=== PATIENT | female | born 1950 | race Caucasian/White ===

== ENCOUNTER 2017-03-13 16:09 | Inpatient (IN) | payer OTHER ==
[~2017-03-13] VITALS: Ht 165.1 cm; Wt 55.3 kg
[2017-03-13 16:33] LABS: ABSOLUTE BASOPHIL COUNT 0 /CUMM (0.0-0.2); ABSOLUTE EOSINOPHIL COUNT 0 /CUMM (0.0-0.7); ABSOLUTE LYMPH COUNT 0.4 /CUMM (1.2-3.4); ABSOLUTE MONOCYTE COUNT 0.3 /CUMM (0.10-0.60); BASOPHIL % 0.1 % (0.0-2.0); EOSINOPHIL % 0.1 % (0-5); HEMATOCRIT 44.4 % (37-47); MEAN CORPUSCULAR HGB 33.5 PG (27.0-31.0); MEAN CORPUSCULAR HGB CONC 33.3 G/DL (33.0-37.0); MEAN CORPUSCULAR VOLUME 100.6 FL (81.0-99.0); MEAN PLATELET VOLUME 7.9 FL (7.4-10.4); PLATELET COUNT 172 /CUMM (130-400); RBC DISTRIBUTION WIDTH 13.9 % (11.5-14.5); RED BLOOD CELL CT 4.42 /CUMM (4.20-5.40); WHITE BLOOD CELL COUNT 8.8 /CUMM (4.8-10.8)
--- NOTE | 2017-03-13 16:34 | ED INFLUENZA/URI COMPLAINT ---
History of Present Illness General Chief Complaint: Chest Pain Stated Complaint: SIB BY WALK IN R/O PNEUMONIA, CP, SOB Source: patient, family Exam Limitations: no limitations Vital Signs & Intake/Output Vital Signs & Intake/Output Vital Signs Date Time Temp Pulse Resp B/P B/P Pulse O2 O2 Flow FiO2 Mean Ox Delivery Rate 03/13 1856 98.9 117 20 126/63 95 Nasal 2.0L Cannula 03/13 1731 119 20 138/75 87 Room Air 03/13 1649 94 Nasal 2.0L Cannula 03/13 1620 98.8 114 26 124/76 86 Room Air Allergies Coded Allergies: Penicillins (HIVES 08/08/16) Reconcile Medications Alprazolam 2 MG TABLET 1 TAB PO BID PRN ANXIETY (Reported) Biotin (Unknown Strength) TABLET (Unknown Dose) PO DAILY SUPPLEMENT (Reported ) Cyclosporine (Restasis) 0.05 % DROPERETTE 1 GTT OPH BID BOTH EYES (Reported) Duloxetine HCl 60 MG CAPSULE.DR 120 MG PO DAILY DEPRESSION (Reported) Ipratropium [place] 42 MCG (0.06 %) SPRAY 1 SPRAY NASB 4XDAILY SJORGRENS SYNDROME (Reported) Lactobacillus Acidophilus (Probiotic) (Unknown Strength) CAPSULE (Unknown Dose ) PO DAILY PROBIOTICS (Reported) Osage-3 Fatty Acids (Osage-3) (Unknown Strength) CAPSULE (Unknown Dose) PO DAILY SUPPLEMENT (Reported) Triage Note: 67 YO FEMALE TO TRIAGE FROM WALK IN. PT C/O R SIDED RIB PAIN AND SHORTNESS OF BREATH. PT TACHYPNIC AT THIS TIME RATE 24-26. RA SATS 86%. PT PALE IN COLOR. DENIES CHEST PAIN. [facility] TO [facility] FOR [facility] AT THIS TIME. PLACED ON 2L OXYGEN VIA NASAL CANNULA. 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 PT ALSO C/O WEAKNESS AND FEVER AT HOME. AFEBRIL AT THIS TIME 98.8 Triage Nurses Notes Reviewed? yes HPI: Ms. Tapia is a 67 yo f w/ anxiety and depression presenting to ED for SOB. Patient states that her had a cold last week and she took care of him. On Monday she began having URI symptoms and a sore throat. Patient had a cough as well as some mild shortness of breath. Over the weekend and shortness of breath seemed to worsen. Patient has stairs in her home which she can typically run up and down. She also exercises 3-4 times a week. She is no longer able to go up or down the flight of stairs without positive for rest. Patient endorses diffuse fatigue. Also endorses diffuse chills as well as subjective fevers and sweats. No significant sputum production, by small amount of clear/white sputum comes up occasionally. No blood in the sputum. Patient states her immunizations such as her Pneumovax is up-to-date. Remote history of smoking quit over 20 years ago. Patient was a 2 pack a day smoker for approximately 10- 15 years prior to that. states that the patient appears paler than usual. The patient endorses tachypnea as well as shortness of breath with speaking. Right sided lower rib pain with cough or deep inspiration. (CEDRIC FINK MD) Past History Travel History Traveled to [place] past 21 day No Medical History Any Pertinent Medical History? 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 No (CEDRIC FINK MD) Review of Systems Review of Systems Constitutional: Reports: chills, fever, malaise. EENTM: Reports: throat pain. Respiratory: Reports: cough, short of breath. Denies: wheezing. Cardiovascular: Reports: chest pain. Denies: peripheral edema, syncope. GI: Reports: no symptoms. Genitourinary: Reports: no symptoms. Musculoskeletal: Reports: no symptoms. Skin: Reports: see HPI. Neurological/Psychological: Reports: no symptoms. Hematologic/Endocrine: Reports: no symptoms. Immunologic/Allergic: Reports: no symptoms. All Other Systems: Reviewed and Negative (CEDRIC FINK MD) Physical Exam Physical Exam General Appearance: well developed/nourished, alert, awake, mild distress Head: atraumatic, normal appearance Eyes: Bilateral: normal appearance, PERRL, EOMI. Ears, Nose, Throat: normal ENT inspection, moist mucous membrane, hearing grossly normal Neck: normal inspection, supple, full range of motion, trachea midline Respiratory: chest non-tender, respiratory distress, Tachypneic to 26. 5-6 word sentences. Crackles and rhonchi in RLL and RML Cardiovascular: tachycardia Gastrointestinal: normal bowel sounds, soft, non-tender Back: normal inspection, normal range of motion Extremities: normal inspection, normal capillary refill, normal range of motion Neurologic/Psych: no motor/sensory deficits, awake, alert, oriented x 3, normal gait, normal mood/affect Skin: intact Core Measures Severe Sepsis Present: No BC x2: Yes Lactic Acid x2: Yes IV ABX Broad Spectrum: No NS/LR Started: Yes Septic Shock Present: No (ALEKS BEARD,CEDRIC) Progress Differential Diagnosis: influenza, pneumonia, pharyngitis, sinusitis Plan of Care: Orders Procedure Date/time Status LACTIC ACID 03/13 1948 Active Patient Data 03/13 1932 Active Admit to inpatient 03/13 1911 Active BLOOD CULTURE 03/13 164 Active LACTIC ACID 03/13 1648 Complete TROPONIN LEVEL 03/13 162 Complete COMPREHENSIVE METABOLIC PANEL 03/13 162 Complete CBC WITHOUT DIFFERENTIAL 03/13 162 Complete EKG 03/13 161 Active Current Medications Sig/Mirella Start time Last Medication Dose Stop Time Status Admin Ceftriaxone Sodium 1,000 MG DAILY 03/13 1904 AC 03/13 (Rocephin) 191 Laboratory Tests 03/13/17 193: Lactic Acid Pending 03/13/17 172: Lactic Acid 2.2 H 03/13/17 1630: Anion Gap 10, Estimated GFR > 60, BUN/Creatinine Ratio 11.4, Glucose 99, Calcium 9.2, Total Bilirubin 1.0, AST 20, ALT 35, Alkaline Phosphatase 63, Troponin I < 0.01, Total Protein 5.5 L, Albumin 3.7, Globulin 1.8 L, Albumin/Globulin Ratio 2.1, CBC w Diff NO MAN DIFF REQ, RBC 4.42, MCV 100.6 H, MCH 33.5 H, RDW 13.9, MPV 7.9, Gran % 91.6 H, Lymphocytes % 5.0 L, Monocytes % 3.2, Eosinophils % 0.1, Basophils % 0.1, Absolute Granulocytes 8.0 H, Absolute Lymphocytes 0.4 L, Absolute Monocytes 0.3, Absolute Eosinophils 0, Absolute Basophils 0, PUBS MCHC 33.3 Microbiology 03/13 1723 BLOOD: Blood Culture - RECD 03/13 165 BLOOD: Blood Culture - RECD 67 yo f w/ hx of pneumonia and remote smoker presenting w/ SOB and cough after taking care of her w/ URI. Patient is hypoxic with increased work of breathing and tachypnea. Given her constellation of symptoms and subjective fever and chills, this is likely a pneumonia. Basic labs including lactic acidosis obtained. 2 sets of blood cultures were also obtained given the level of hypoxia. Chest x-ray ordered. Clinically, the patient has a right lower lobe pneumonia based on crackles and rhonchi. Given the tachycardia, patient was ordered for 1 L of IV fluids. Patient has RLL pneumonia developing on CXR. Pt ordered for ceftriaxone/ azithromycin. Given the degree of hypoxia and the patient did not obtain a history of oxygen requirement, we'll admit to the hospital as an inpatient or IV antibiotics as well as oxygen. Patient will also likely need PT prior to discharge. Will order Tylenol and Motrin for her developing headache while eyes likely low-grade fever. Discussed with Dr. Root. (CEDRIC FINK MD) Diagnostic Imaging: Viewed by Me: Radiology Read. Discussed w/RAD: Radiology Read. CXR Impression: Right lower lobe consolidation concerning for developing pneumonia. Follow-up chest x-rays recommended following treatment to document resolution. Initial ED EKG: normal axis, normal intervals, normal p-waves, normal sinus rhythm, nonspecific ST T wave chg, Twave inversions in V3-V6, tachycardia Prior EKG: changed (CEDRIC FINK MD) Departure Departure Time of Disposition: 1916 Disposition: HOME OR SELF CARE Condition: Stable Clinical Impression Primary Impression: Right lower lobe pneumonia Qualifiers: Pneumonia type: due to unspecified organism Qualified Code: J18.1 - Lobar pneumonia, unspecified organism Secondary Impressions: Hypoxia, Tachycardia Referrals: MUMTAZ CORLEY MD (PCP/Family) Departure Forms: Customer Survey General Discharge Information Admission Note Spoke With: KARYN ROOT MD Documentation of Exam: Documentation of any treatments & extenuating circumstances including Concerns Regarding Discharge (functional status, medication knowledge or non-compliance, living conditions, etc.) that warrant an admission rather than observation: Patient requires inpatient hospitalization for IV antibiotics as well as her degree of hypoxia. Should the patient go home, her pneumonia could worsen leading to sepsis or septic shock which would increase her morbidity and mortality significantly. Also patient is significantly hypoxic with ambulation to 79% on room air. This could lead to even worsening hypoxia and even . (ALEKS BEARD,CEDRIC) PA/ELECTRONICS SCALE TESTER Co-Sign Statement Statement: ED Attending supervision documentation- [] I saw and evaluated the patient. I have also reviewed all the pertinent lab results and diagnostic results. I agree with the findings and the plan of care as documented in the PA's/ELECTRONICS SCALE TESTER's documentation. [X] I have reviewed the ED Record and agree with the PA's/ELECTRONICS SCALE TESTER's documentation. [] Additions or exceptions (if any) to the PAs/ELECTRONICS SCALE TESTER's note and plan are summarized below: [] (CINTHYA SMYTH DO)
[2017-03-13 16:36] LABS: GRANULOCYTE % 91.6 % (42.2-75.2)
[2017-03-13] MEDS ORDERED: DULOXETINE HCL60 MG PO (17:18)
[2017-03-13] MEDS ORDERED: ALPRAZOLAM2 M2 PO (17:18)
[2017-03-13] MEDS ORDERED: RESTASIS1 EACH OPH (17:19)
[2017-03-13] MEDS ORDERED: IPRATROPIUM BRO15 M1 NASB (17:19)
[2017-03-13] MEDS ORDERED: BIOTIN800 MCG PO (17:20)
[2017-03-13] MEDS ORDERED: OMEGA-31000 M1 PO (17:20)
[2017-03-13] MEDS ORDERED: PROBIOTIC1 EACH PO (17:20)
--- NOTE | 2017-03-13 18:48 | RADIOLOGY REPORT ---
EXAMINATION: XR CHEST CLINICAL INFORMATION: Shortness of breath, cough, and hypoxia COMPARISON: Chest radiograph 01/10/2008 TECHNIQUE: 2 views of the chest were obtained. FINDINGS: There is focal consolidation within the right lower lobe that is concerning for developing pneumonia. The lungs are otherwise clear. There is no pneumothorax. Cardiac silhouette size is normal. There are no acute osseous findings. Thoracic spondylosis. IMPRESSION: Right lower lobe consolidation concerning for developing pneumonia. Follow-up chest x-rays recommended following treatment to document resolution.
--- NOTE | 2017-03-13 19:46 | History & Physical ---
GERALD VIDES MD 03/13/171945: General Information and HPI MD Statement: I have seen and personally examined JEN THOMPSON and documented this H&P. The patient is a 67 year old F who presented with a patient stated chief complaint of [shortness of breath, cough,fever,chills]. Source of Information: patient Exam Limitations: no limitations History of Present Illness: 67-year-old female with PMH anxiety, depression, Sjogren? (dry eyes, mouth,nose, negative serology), was sent in by [id number] for evaluation of shortness of breath, cough, fever, and chills, to evaluate for pneumonia. Patient has been taking care of her with URI bronchitis with bilateral earache over the past week. She has been in her normal state of health up until monday when she started to feel sore throat. Her symptoms worsen over the past few days. Has nonproductive cough. Pleuritic right sided chest pain, 6/10, worsen with cough. She had fever up to 101.7, especially in the evening. She has gotten significantly short of breath that she was not able to go up the stairs. She also was feeling "mentally silly", when she thought there was twin beds in her bedroom, when in fact she never has twin beds. At baseline, she exercises 4/7 days a week. She has 2 flights of stairs at home. She exercises by going up and down the stairs. Over the past year, she has noticed that she has gotten more short of breath that requires her to rest. No chest pain, diaphoresis, arm/jaw pain, nausea. She reports dysphagia due to dry mouth. Denies aspirating on food. In the ED, she desat to 86% on RA at rest, 79% on RA on ambulation, 95% on 2L. Given 1Xceftriaxone,azithro,tylenol po, motrin, 1X NS bolus. BC obtained. Allergies/Medications Allergies: Coded Allergies: egg (Intermediate, NAUSEA, VOMITING, DIARRHEA 03/13/17) Penicillins (HIVES 08/08/16) Home Med list Alprazolam 2 MG TABLET 1 TAB PO BID PRN ANXIETY (Reported) Biotin 800 MCG TABLET 2 CAP PO DAILY SUPPLEMENT (Reported) Cyclosporine (Restasis) 0.05 % DROPERETTE 1 GTT OPH BID BOTH EYES (Reported) Duloxetine HCl 60 MG CAPSULE.DR 120 MG PO DAILY DEPRESSION (Reported) Ipratropium [place] 42 MCG (0.06 %) SPRAY 1 SPRAY NASB 4XDAILY SJORGRENS SYNDROME (Reported) Lactobacillus Acidophilus (Probiotic) 10 BILLION CELL CAPSULE 2 CAP PO DAILY PROBIOTICS (Reported) [place]-3 Fatty Acids ([place]-3) 1,000 MG CAPSULE 1 CAP PO BID SUPPLEMENT ( Reported) Past History Travel History Traveled to [place] past 21 day No Medical History Neurological: NONE EENT: NONE Cardiovascular: NONE Respiratory: pneumonia Gastrointestinal: NONE Hepatic: NONE Renal: NONE Musculoskeletal: NONE Psychiatric: anxiety, depression Endocrine: NONE Blood Disorders: NONE Cancer(s): NONE 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 Surgical History Surgical History: tonsilectomy Past Family/Social History Family History Relations & Conditions if any grandfather FH: myocardial infarction FATHER FH: myocardial infarction Relation not specified for: FH: depression Psychosocial History Where do you live? Home Who Do You Live With? spouse Smoking Status: Former Smoker ([id number] years,quit 20yrsago) ETOH Use: occasional use Illicit Drug Use: denies illicit drug use Functional Ability ADLs Independent: dressing, eating, toileting, bathing. Ambulation: independent IADLs Independent: shopping, housework, finances, food prep, telephone, transportation , medication admin. Review of Systems Review of Systems Constitutional: Reports: chills, fever, weakness. EENTM: Denies: visual changes. Cardiovascular: Reports: chest pain. Denies: edema, palpitations, syncope. Respiratory: Reports: cough, short of breath. Denies: hemoptysis, sputum production, wheezing. GI: Denies: abdominal pain, bloating, constipation, diarrhea, nausea, vomiting. Genitourinary: Denies: dysuria. Exam & Diagnostic Data Last 24 Hrs of Vital Signs/I&O Vital Signs Date Time Temp Pulse Resp B/P B/P Pulse O2 O2 Flow FiO2 Mean Ox Delivery Rate 03/13 2303 98.1 97 16 98/58 97 Nasal 2.5L Cannula 03/13 2231 98.4 101 20 94/53 98 Nasal 2.0L Cannula 03/13 2042 100.0 667 48 0084/65 98 Nasal 2.0L Cannula 03/13 1856 98.9 117 20 126/63 95 Nasal 2.0L Cannula 03/13 1731 119 20 138/75 87 Room Air 03/13 1649 94 Nasal 2.0L Cannula 03/13 1620 98.8 114 26 124/76 86 Room Air Physical Exam General Appearance Alert, Oriented X3, Cooperative, No Acute Distress, sitting up comfortably on the bed eating dinner Skin No Significant Lesion Skin Temp/Moisture Exam: Warm/Dry Sepsis Skin Exam (color): Normal for Ethnicity HEENT Atraumatic, PERRLA, EOMI, dry mucous membranes Neck Supple, No JVD, +2 Carotid Pulse wo Bruit Lymphatic Axillary nl, Cervical nl Cardiovascular Normal S1, Normal S2, No Murmurs, Gallops, Rubs, tachycardic Lungs Clear to Auscultation, Normal Air Movement Abdomen Normal Bowel Sounds, Soft, No Tenderness, No Hepatospenomegaly, No Masses Neurological Normal Speech, Strength at 5/5 X4 Ext Extremities No Edema, Normal Pulses Vascular Normal Pulses, Pulses Symmetrical, normal capillary refill Last 24 Hrs of Labs/Clarence: Laboratory Tests 03/13/172201: Troponin I < 0.01, Vitamin B12 Pending, Folate Pending 03/13/17 2201: Vitamin B12 Cancelled 03/13/17 220: RBC Folate Cancelled 03/13/17 1935: Lactic Acid 2.6 H 03/13/17 1723: Lactic Acid 2.2 H 03/13/17 1630: Anion Gap 10, Estimated GFR > 60, BUN/Creatinine Ratio 11.4, Glucose 99, Calcium 9.2, Total Bilirubin 1.0, AST 20, ALT 35, Alkaline Phosphatase 63, Troponin I < 0.01, Total Protein 5.5 L, Albumin 3.7, Globulin 1.8 L, Albumin/Globulin Ratio 2.1, TSH 0.335, Thyroxine (T4) 4.7, CBC w Diff NO MAN DIFF REQ, RBC 4.42, MCV 100.6 H, MCH 33.5 H, RDW 13.9, MPV 7.9, Gran % 91.6 H, Lymphocytes % 5.0 L, Monocytes % 3.2, Eosinophils % 0.1, Basophils % 0.1, Absolute Granulocytes 8.0 H, Absolute Lymphocytes 0.4 L, Absolute Monocytes 0.3, Absolute Eosinophils 0, Absolute Basophils 0, PUBS MCHC 33.3 Microbiology 03/13 2215 NASOPHARYN: Influenza Virus A & B Rapid Smear - COMP 03/13 2011 URINE ROUT: Legionella Antigen - ORD 03/13 2011 URINE ROUT: Streptococcus pneumoniae Antigen (M - ORD 03/13 2011 LOWER RESP: Respiratory Culture - ORD 03/13 2011 LOWER RESP: Gram Stain - ORD 03/13 1723 BLOOD: Blood Culture - RECD 03/13 1650 BLOOD: Blood Culture - RECD Diagnostic Data EKG Results SR [address] depression V4,v5,v6 (old) T inversion II, III, AvF, V4,v5,v6 (new) CXR Results EXAM TYPE: RAD - XRY-CHEST XRAY, PA AND LATERAL EXAMINATION: XR CHEST CLINICAL INFORMATION: Shortness of breath, cough, and hypoxia COMPARISON: Chest radiograph 01/10/2008 TECHNIQUE: 2 views of the chest were obtained. FINDINGS: There is focal consolidation within the right lower lobe that is concerning for developing pneumonia. The lungs are otherwise clear. There is no pneumothorax. Cardiac silhouette size is normal. There are no acute osseous findings. Thoracic spondylosis. IMPRESSION: Right lower lobe consolidation concerning for developing pneumonia. Follow-up chest x-rays recommended following treatment to document resolution. DICTATED BY: CINTHYA PRAKASH MD DATE/TIME DICTATED:03/13/171841 [employer] ADJUSTER:JAMAR Assessment/Plan Assessment: 67-year-old female with PMH anxiety, depression, Sjogren? (dry eyes, mouth,nose, negative serology), was sent in by [id number] for evaluation of sore throat, shortness of breath, pleuritic chest pain, cough, fever up to 101.7, and chills, with positive sick contact ( with URI). She reports dysphagia due to dry mouth. Denies aspirating on food. Over the past year, she has noticed that she has gotten more short of breath that requires her to rest when she walks up and down the stairs. No chest pain, diaphoresis, arm/jaw pain, nausea. CXR showed right lower lobe pneumonia. EKG showed new T wave inversions II, III, AvF, V4,V5 ,V6 and old ST depression V4,V5,V6. Initial troponin negative. Lactic acid was up to 2.6. Patient admitted to telemetry for EKG changes and acute hypoxic respiratory failure (86% on RA, 79% ambulating on RA) for likely community acquired pneumonia vs possible aspiration pneumonia. Problem list: # Acute hypoxic respiratory failure (86% on RA, 79% ambulating on RA) for likely community acquired pneumonia vs possible aspiration pneumonia # EKG changes, rule out ACS # Acute hypoxic respiratory failure (86% on RA, 79% ambulating on RA) for likely community acquired pneumonia vs possible aspiration pneumonia * F/U BCX2, LRC, urine legionella, urine strep pneumo, flu * Continue ceftriaxone and azithromycin * Swallow eval in am * Regular diet ordered * NS 75ml/hr X 3 bags # EKG changes, rule out ACS * Admit to telemetry * Serial EKG and trops 10pm, 6am * Cardio consult in am * Given aspirin X 1 * F/U echocardiogram * F/U lipid panel # Continue home meds Duloxetine 120 mg daily Xanax 2 mg PO BID Fish oil Lactobacillus Diet: regular diet DVT ppx: heparin sc and alps PP: morphine 1 mg IV Q4P severe, vicodin 5/325 1 tab Q6P moderate, tylenol po Q6P DNR/DNI As Ranked By This Provider Problem List: 1. Right lower lobe pneumonia Qualifiers Pneumonia type: due to unspecified organism Qualified Code: J18.1 - Lobar pneumonia, unspecified organism 2. Hypoxia 3. Tachycardia 4. Acute electrocardiogram changes Core Measures/Miscellaneous Acute Coronary Syndrome ACS Diagnosis: No Cerebrovascular Accident CVA/TIA Diagnosis: No Congestive Heart Failure CHF Diagnosis: No Venous Thromboembolism VTE Risk Factors: Acute medical illness, Age > 40 No [facility] VTE prophylaxis d/t: No contraindications No VTE Pharm Prophylaxis d/t: No contraindications VTE Diagnosis: No VTE Type: NONE VTE Confirmed by (Test): NONE Severe Sepsis Severe Sepsis Present: No BC x2: Yes Lactic Acid x2: Yes IV ABX Broad Spectrum: No NS/LR Started: Yes Septic Shock Septic Shock Present: No Miscellaneous Documentation Attending Case [facility]ed [facility] Primary Care Physician: MUMTAZ CORLEY MD Patient sees these Specialists Opthalmology Dr Luis A Ramirez Psyciatrist [facility] Level of Patient Care: Telemetry TOMMY BENITEZ 03/13/171947: Resident Review Statement Resident Statement: examined this patient, discussed with pharmacy graduate intern, agreed with pharmacy graduate intern, discussed with family, reviewed EMR data (avail), discussed with nursing , discussed with case mgmt, reviewed images, amended to note Other Findings: 67-year-old female with a past medical history of Sjogren's syndrome, depression , anxiety presented to the ER with chief complaint of right-sided rib pain and shortness of breath and hypoxic with O2 sats of 86%. According to the patient was in her usual state of health up until Monday when she started to have sore throat as well as shortness of breath which progressively worsened to the point where it was difficult for her to ambulate this morning associated decided to come to the ER. Apparently there is a history of sick contact she was taking care of her who had bronchitis. Denies CP, palpitations, does endorse SOB, pleuritic chest pain on the right side. Denies lower extermity edema, PND, orthopnea. Does endorse ALCALA within 1 year where she gets winded when she climbs 2 flights of stairs. Of note does exercise 4/7 days a week. For rest of history pelase refer to Dr. Vides's not above. Vitals at the time of admission blood pressure 126/63, respiratory rate of 20, tachycardic to 117, afebrile saturating 95% on 2 L of oxygen via nasal cannula. On physical exam alert and oriented 3 and in no acute distress lying comfortably in bed. HEENT revealed PERRLA, dry mucous membranes. Examination of the neck did not reveal an elevated JVP, cervical lymphadenopathy. Cardiovascular exam pertinent for normal S1, S2, no murmurs rubs or gallops appreciated. Chest was clear to auscultation bilaterally. Abdominal exam is benign with abdomen soft, nontender, nondistended with normal bowel sounds in all 4 quadrants. Examination of the lower extremities did not reveal any edema. Pulses were intact bilaterally. Neuro exam was grossly unremarkable. Labs were pertinent for a normal white blood cell count of 8800, and H&H of 14.8 /44.4 and elevated MCV of 100.6 with normal platelet count 1 72,000. Serum chemistries pertinent for hyponatremia with a sodium of 133, potassium of 3.7, bicarbonate of 24, normal anion gap of 10, BUN 8 with a creatinine of 0.7. Lactic acid elevated to 2.2. LFTs unremarkable AST/alt of 20/35, total bili 1.0 , first set of troponins negative at less than 0.0 100 Chest x-ray showed right lower lobe consolidation concerning for developing pneumonia. EKG revealed sinus tachycardia with a heart rate of 117, normal axis, minimal ST segment depression in inferior leads 23 and aVF as well as V4 to V6 with T-wave inversions in V4 to V6 errant nail from the previous EKG. In the ER she received 1 dose of IV ceftriaxone thousand milligrams, Zithromax 500 mg 1, Tylenol 650 mg by mouth, Motrin 600 mg by mouth 1 and normal saline 1000ML 1. Assessment and plan Admit patient to telemetry given subtle EKG changes #Acute hypoxemic respiratory failure Most likely secondary to community-acquired pneumonia given radiological evidence of consolidation however cannot rule out aspiration given history of Sjogren's syndrome and questionable dysphagia. For now continue on ceftriaxone thousand milligrams daily, azithromycin 500 mg daily Follow-up will respiratory cultures, urinary antigen for strep, Legionella, rapid flu Swallow eval in a.m. Continue to titrate oxygen to maintain saturations greater than 92%. #EKG chnages - R/O ACS - F/U trop and EKG @ 10:00pm and 6:00am - F/U Echo - Cardio conuslt in AM - F.U lipid panel #Depression and anxiety Continue on Xanax 2 mg twice a day when necessary by mouth, duloxetine 620 mg daily -DVT prophylaxis Heparin 5000 international units 3 times a day subcutaneous Diet Regular Code Status DNR/DNI DK BEARD, [facility] 03/13/172030: Attending MD Review Statement Attending Statement Attending MD Statement: examined this patient, discuss w/resident/PA/PATIENT CARE, agreed w/resident/PA/PATIENT CARE Attending Assessment/Plan: 67 yo F with h/o depression, clinical Sjogren's (although markers were negative) , is sent in from a Walk in [facility] for evaluation of right sided rib/lower chest pleuritic pain and dyspnea. Patient reports her was suffering an URI last week, after which she developed sore throat 3 days ago, associated with fatigue, exhaustion, dyspnea and nonproductive cough. Fever of ?107 at home. She is uptodate with flu and pneumonia vaccine. Of note, patient does not have any cardiac problems. She does report exertional dyspnea for the past 1 year, at baseline she is pretty active and works out 3-4 times per week. Patient reports having a clinical diagnosis of Sjogren's although all her serologic markers were negative. She reports having difficulty swallowing food, as she tends to choke and has to facililitate swallowing with water. She denies odynophagia or aspiration. On ER arrival, O2 sats were 86% on RA, on ambulation sats dropped to 79% --> 97% on 2.5L. Tmax 100, tachycardic to 100-110's, BP 126/63 --> 98/58. Exam: AAO, dry mucous membranes, Chest right sided basilar rales. Labs: WBC 8.8, macrocytosis, trop neg, lactic acid 2.2 --> 2.6. CXR: right lower lobe consolidation concerning for a developing pneumonia. EKG: Sinus tachycardia, Qtc 402, minimal ST depression, TWI V3-6, II, III, aVF (compared to EKG 2007). 1. Acute hypoxic respiratory failure, right lower lobe pneumonia likely community acquired, however aspiration cannot be ruled out. TRC nebs, panculture , check urine legionella and strep Ag, IV ceftriaxone and azithro, obtain swallow eval in AM. IV hydration, trend lactic acid. 2. Prolonged exertional dyspnea and new EKG changes, no underlying cardiac history. Tele admit, serial EKG and troponin, Echo to assess LV function, give aspirin, check lipid panel, TSH, A1c. Obtain cardio consult. She may eventually need outpatient stress test. She has family h/o atherosclerosis. DVT ppx Lovenox. DNR/I.
--- NOTE | 2017-03-13 20:33 | Admission Certification ---
Admission Certification Certification Statement - As attending physician, I certify that at the time of - admission, based on clinical presentation, severity of - symptoms, need for further diagnostic testing and - therapeutic interventions, and risk of adverse outcomes - without in-hospital treatment, in my clinical assessment, - this patient requires an acute hospital stay for a minimum - of two nights or longer. I have also considered psychsocial - factors such as support system, advanced age, financial - issues, cognitive issues, and failed out-patient treatments, - past re-admission history, safety of patient, and lack of - compliance as applicable. Specific rationale supporting this admission is: Hypoxia, pneumonia likely community acquired, although aspiration cannot be ruled out. New EKG changes requires Telemetry monitoring and serial assessment to rule out cardiac event.
[2017-03-13 23:03] VITALS: BP 98/58
[2017-03-14 07:48] LABS: ABSOLUTE BASOPHIL COUNT 0 /CUMM (0.0-0.2); ABSOLUTE EOSINOPHIL COUNT 0.1 /CUMM (0.0-0.7); ABSOLUTE GRANULOCYTE CT 5.1 /CUMM (1.4-6.5); ABSOLUTE LYMPH COUNT 0.6 /CUMM (1.2-3.4); ABSOLUTE MONOCYTE COUNT 0.2 /CUMM (0.10-0.60); MEAN PLATELET VOLUME 8.6 FL (7.4-10.4); RBC DISTRIBUTION WIDTH 13.9 % (11.5-14.5)
[2017-03-14 08:00] VITALS: BP 90/56
[2017-03-14 08:08] LABS: BASOPHIL % 0.1 % (0.0-2.0); EOSINOPHIL % 1.5 % (0-5); GRANULOCYTE % 84.1 % (42.2-75.2); MEAN CORPUSCULAR HGB 33.5 PG (27.0-31.0); MEAN CORPUSCULAR HGB CONC 33.2 G/DL (33.0-37.0); MEAN CORPUSCULAR VOLUME 100.8 FL (81.0-99.0); PLATELET COUNT 132 /CUMM (130-400); WHITE BLOOD CELL COUNT 6.1 /CUMM (4.8-10.8)
[2017-03-14 08:15] LABS: HEMATOCRIT 38.3 % (37-47)
--- NOTE | 2017-03-14 08:54 | PN- Housestaff ---
DANIELA WOODRUFF 03/14/17 0840: Subjective Follow-up For: Acute hypoxemic respiratory failure, likely secondary to community acquired pneumonia EKG changes Subjective: Patient seen and examined. Reports no further episodes of cough and sputum production. No fevers or chills overnight. The rib pain as completely resolved. She reports feeling much better and states the urge to be discharged soon. Review of Systems Constitutional: Reports: see HPI. Objective Last 24 Hrs of Vital Signs/I&O Vital Signs Date Time Temp Pulse Resp B/P B/P Pulse O2 O2 Flow FiO2 Mean Ox Delivery Rate 03/14 0000 94 Nasal 2.0L Cannula 03/13 2303 98.1 97 16 98/58 97 Nasal 2.5L Cannula 03/13 2231 98.4 101 20 94/53 98 Nasal 2.0L Cannula 03/13 2042 100.0 327 35 0444/65 98 Nasal 2.0L Cannula 03/13 1856 98.9 117 20 126/63 95 Nasal 2.0L Cannula 03/13 1731 119 20 138/75 87 Room Air 03/13 1649 94 Nasal 2.0L Cannula 03/13 1620 98.8 114 26 124/76 86 Room Air Intake & Output 03/14 1600 03/14 0800 03/14 0000 Intake Total 1000 2000 Output Total 750 Balance 250 2000 Intake, IV 800 2000 Intake, Oral 200 Output, Urine 750 Patient 122 lb Weight Weight Reported by Patient Measurement Method Physical Exam General Appearance: Alert, Oriented X3, Cooperative HEENT: Atraumatic, PERRLA Cardiovascular: Regular Rate, Normal S1, Normal S2 Lungs: Clear to Auscultation, decreased air entry noted at right lung base. Extremities: No Clubbing, No Cyanosis, No Edema Current Medications: Current Medications Sig/Mirella Start time Last Medication Dose Route Stop Time Status Admin Acetaminophen 650 MG Q6P PRN 03/13 2115 AC PO Acetaminophen 650 MG ONCE ONE 03/13 1915 DC 03/13 PO 03/13 Acetaminophen 0 .STK-MED ONE 03/13 1915 DC PO Acetaminophen/ 1 TAB Q6P PRN 03/13 2115 AC Hydrocodone Bitart PO Alprazolam 2 MG BID PRN 03/13 2115 AC 03/14 PO 03/203 Aspirin 325 MG ONCE ONE 03/13 2130 DC 03/14 PO 06/05 2131 0012 Azithromycin 500 MG DAILY 03/14 1000 AC Sodium Chloride 250 ML IV Azithromycin 500 MG ONCE ONE 03/13 1915 DC 03/13 PO 03/13 Ceftriaxone Sodium 1,000 MG 1900 03/14 1900 AC IV Ceftriaxone Sodium 1,000 MG DAILY 03/14 1000 CAN IV Ceftriaxone Sodium 0 .STK-MED ONE 03/13 1915 DC .ROUTE Ceftriaxone Sodium 1,000 MG DAILY 03/13 1904 DC 03/13 IV 191 Cyclosporine 2 GTT BID 03/14 1000 AC OPH Duloxetine HCl 120 MG DAILY 03/14 1000 AC PO Fish Oil 1,050 MG DAILY 03/13 2115 AC 03/14 PO 0012 Heparin Sodium 5,000 UNIT Q8 03/13 2200 AC (Porcine) SC Ibuprofen 600 MG ONCE ONE 03/13 1915 DC 03/13 PO 03/13 Ibuprofen 0 .STK-MED ONE 03/13 1915 DC PO Ipratropium [place] 2.5 ML ONCE ONE 03/13 2115 DC INH 03/13 2116 Lactobacillus 1 CAP BID 03/13 2200 AC 03/14 Acidophilus PO 0011 Morphine Sulfate 1 MG Q4P PRN 03/13 2115 AC IV Potassium Chloride 40 MEQ ONCE ONE 03/14 0845 AC PO 03/14 0846 Sodium Chloride 1,000 ML BOLUS ONE 03/14 0015 CAN IV 03/14 0114 Sodium Chloride 1,000 ML Q13H 03/13 2115 AC 03/14 IV 03/15 0914 0010 Sodium Chloride 1,000 ML BOLUS ONE 03/13 2045 DC 03/13 IV 03/13 2144 2043 Sodium Chloride 1,000 ML BOLUS ONE 03/13 1700 DC 03/13 IV 03/13 1759 1715 Last 24 Hrs of Lab/Clarence Results Last 24 Hrs of Labs/Mics: Laboratory Tests 03/14/17 0653: Lactic Acid 1.4 03/14/17 0653: Anion Gap 9, Estimated GFR > 60, BUN/Creatinine Ratio 15.7, Hemoglobin A1c Pending, Troponin I < 0.01, Triglycerides 60, Cholesterol 139, LDL Cholesterol, Calc 60 L, HDL Cholesterol 67 H, Cholesterol/HDL Ratio 2, TSH 1.390, CBC w Diff MAN DIFF ORDERED, RBC 3.80 L, MCV 100.8 H, MCH 33.5 H, RDW 13.9, MPV 8.6 , Gran % 84.1 H, Lymphocytes % 10.2 L, Monocytes % 4.1, Eosinophils % 1.5, Basophils % 0.1, Absolute Granulocytes 5.1, Segmented Neutrophils 74, Band Neutrophils 17 H, Absolute Lymphocytes 0.6 L, Lymphocytes 6 L, Monocytes 2, Absolute Monocytes 0.2, Eosinophils 1, Absolute Eosinophils 0.1, Absolute Basophils 0, Platelet Estimate VERIFIED BY SMEAR, Anisocytosis 1+, PUBS MCHC 33.2 03/14/17 0035: Lactic Acid 2.2 H 03/13/17 2300: Lactic Acid Cancelled 03/13/172201: Troponin I < 0.01, Vitamin B12 561, Folate 6.6 03/13/172200: Vitamin B12 Cancelled 03/13/172200: RBC Folate Cancelled 03/13/17 1935: Lactic Acid 2.6 H 03/13/17 1723: Lactic Acid 2.2 H 03/13/17 1630: Anion Gap 10, Estimated GFR > 60, BUN/Creatinine Ratio 11.4, Glucose 99, Calcium 9.2, Total Bilirubin 1.0, AST 20, ALT 35, Alkaline Phosphatase 63, Troponin I < 0.01, Total Protein 5.5 L, Albumin 3.7, Globulin 1.8 L, Albumin/Globulin Ratio 2.1, TSH 0.335, Thyroxine (T4) 4.7, CBC w Diff NO MAN DIFF REQ, RBC 4.42, MCV 100.6 H, MCH 33.5 H, RDW 13.9, MPV 7.9, Gran % 91.6 H, Lymphocytes % 5.0 L, Monocytes % 3.2, Eosinophils % 0.1, Basophils % 0.1, Absolute Granulocytes 8.0 H, Absolute Lymphocytes 0.4 L, Absolute Monocytes 0.3, Absolute Eosinophils 0, Absolute Basophils 0, PUBS MCHC 33.3 Microbiology 03/13 2215 NASOPHARYN: Influenza Virus A & B Rapid Smear - COMP 03/13 2011 URINE ROUT: Legionella Antigen - ORD 03/13 2011 URINE ROUT: Streptococcus pneumoniae Antigen (M - ORD 03/13 2011 LOWER RESP: Respiratory Culture - ORD 03/13 2011 LOWER RESP: Gram Stain - ORD 03/13 1723 BLOOD: Blood Culture - RECD 03/13 165 BLOOD: Blood Culture - RECD Assessment/Plan Assessment: 67-year-old woman who presented to [facility] ED on 03/13/2017 with sudden onset right-sided pleuritic chest pain/rib pain reproducible, reported fever of 101.7 at home, with imaging suspicious of right lower lobe consolidation concerning for developing pneumonia. Presentation suspicious for acute viral tracheobronchitis versus developing pneumonia. 1. Community-acquired pneumonia versus acute tracheobronchitis: Continue current antibiotics. Follow-up results for strep pneumo and Legionella urinary antigen. TRC. Incentive spirometry. Pending above, we will discontinue ceftriaxone and discharge patient on by mouth azithromycin in 24-48 hours contingent on clinical improvement. Concern for aspiration, given reported history of Sjogren, patient uses fluids has a substitute for lack of salivation with her meals. Follow follow-up swallow eval. 2. Nonspecific EKG changes: ACS ruled out. Outpatient stress test and follow- up with cardiology. Replete potassium, recheck potassium tomorrow morning. Full code. Regular diet. Lovenox for DVT prophylaxis. Problem List: 1. Right lower lobe pneumonia Pain Ratin Pain Location: Right rib Pain Goal: Remain pain free Pain Plan: Tylenol Tomorrow's Labs & Rationales: BEP for pottasium CBC for acute infection. KRISTAL BOOTHE MD 03/14/17 1519: Attending MD Review Statement Attending Statement Attending MD Statement: examined this patient, discuss w/resident/PA/CRACKER OFF, agreed w/resident/PA/CRACKER OFF, reviewed EMR data (avail), discussed with nursing, discussed with case mgmt, amended to note Attending Assessment/Plan: Patient seen and examined. Resting comfortably and not in acute distress. She reports feeling better following admission overnight. Denies chest pain or shortness of breath at rest. She complains of Cough with little phlegm production. So far she is afebrile and hemodynamically stable. She is maintaining her saturation on room air. On examination she does not appear to be in acute distress. She has good entry bilaterally with mild reveals in the right lung base. She denies any difficulty swallowing.She denies any chest pain. She has had no events on telemetry overnight. Cardiac enzymes are negative. Recommendations: -Continue antibiotic therapy with IV Rocephin/Zithromax. -Follow-up sputum cultures. -Mobilize patient. Check ambulatory pulse oximetry. -Follow-up swallow evaluation. -Obtain cardiology consultation for evaluation of her nonspecific EKG changes. -Patient reports diarrhea that began following admission. Denies any abdominal cramping. Denies nausea vomiting. She remains afebrile with no leukocytosis today. Send stool for C. difficile. -Supplement potassium levels. Repeat serum chemistry in a.m.
--- NOTE | 2017-03-14 14:04 | Patient Discharge Instructions ---
Discharge Instructions General Discharge Information You were seen/treated for: Pneumonia Right rib pain Watch for these problems: Fevers Chills Worsening cough Sputum production Worsening rib pain Special Instructions: Please follow up with PCP as an outpatient today after discharge. Diet Continue normal diet: Yes Activity Full Activity/No Limits: Yes Acute Coronary Syndrome Inclusion Criteria At DC or during hospital stay patient has or had the following: ACS DIAGNOSIS No Discharge Core Measures Meds if any: Prescribed or Continued at Discharge Meds if any: NOT Prescribed or Continued at Discharge Congestive Heart Failure Inclusion Criteria At DC or during hospital stay patient has or had the following: CHF DIAGNOSIS No Discharge Core Measures Meds if any: Prescribed or Continued at Discharge Meds if any: NOT Prescribed or Continued at Discharge Cerebrovascular accident Inclusion Criteria At DC or during hospital stay patient has or had the following: CVA/TIA Diagnosis No Discharge Core Measures Meds if any: Prescribed or Continued at Discharge Meds if any: NOT Prescribed or Continued at Discharge Venous thromboembolism Inclusion Criteria VTE Diagnosis No VTE Type NONE VTE Confirmed by (Test) NONE Discharge Core Measures - Per Current guidelines, there needs to be overlap - treatment for the first 5 days of Warfarin therapy. - If discharged on Warfarin prior to 5 days of - overlap therapy, the patient will need to be - assessed for post discharge needs including - *Post discharge parental anticoagulation - *Warfarin and/or parental anticoagulation education - *Follow up date to check INR post discharge At least 5 days overlap therapy as Inpatient No Meds if any: Prescribed or Continued at Discharge Note: Overlap Therapy is Warfarin and Anticoagulant Meds if any: NOT Prescribed or Continued at Discharge
[2017-03-14 16:00] VITALS: BP 112/60
--- NOTE | 2017-03-14 18:35 | ECHOCARDIOGRAM REPORT ---
JEN THOMPSON Age: 67 : 1950 Gender: F Exam Date: 03/14/2017 15:39 Exam Location: [address] Ht (in): 65 Wt (lb): 121 BSA: 1.58 BP: 90 / 56 Ordering Physician: TOMMY BENITEZ MD Referring Physician: TOMMY BENITEZ MD Technologist: Janett Carroll [facility] Room Number: [id number] Indications: MYOCARDIAL ISCHEMIA/TX Rhythm: Sinus Technical Quality: Fair FINDINGS Left Ventricle Normal global left ventricular size, wall thickness, systolic function with no obvious regional wall motion abnormalities. Left ventricular ejection fraction is estimated at >65 %. Right Ventricle The right ventricle is normal in size and function. Right Atrium The right atrium is normal in size. Left Atrium The left atrium is normal in size. The interatrial septum is intact. Mitral Valve Mild thickening/calcification of the mitral valve leaflets. Mild mitral regurgitation. Aortic Valve Focal thickening of the aortic valve cusps. No aortic stenosis. No aortic regurgitation. Tricuspid Valve The tricuspid valve is normal in structure and function. There is mild tricuspid regurgitation. Pulmonary artery systolic pressure is normal. Pulmonic Valve Structurally normal pulmonic valve. There is no pulmonic regurgitation. Pericardium Normal pericardium without effusion. No pleural effusion. Great Vessels Normal aortic root dimension. The aortic arch and great vessels are well seen and are normal. CONCLUSIONS Normal global left ventricular size, wall thickness, systolic function with no obvious regional wall motion abnormalities. Left ventricular ejection fraction is estimated at >65 %. The left atrium is normal in size. Mild thickening/calcification of the mitral valve leaflets. Mild mitral regurgitation. Focal thickening of the aortic valve cusps. No aortic stenosis. Pulmonary artery systolic pressure is normal. [place] Díaz M.D. (Electronically Signed) Final Date: 14 March 2017 18:35 MEASUREMENTS (Male / Female) Normal Values 2D ECHO LV Diastolic Diameter PLAX 4.5 cm 4.2 - 5.9 / 3.9 - 5.3 cm LV Systolic Diameter PLAX 2.0 cm 2.1 - 4.0 cm LV Fractional Shortening PLAX 55.6 % 25 - 46 % LV Ejection Fraction 2D Teich 86.2 % IVS Diastolic Thickness 0.9 cm LVPW Diastolic Thickness 0.9 cm LV Relative Wall Thickness 0.4 RV Internal Dim ED PLAX 2.8 cm 1.9 - 3.8 cm LVOT Diameter 2.1 cm Aortic Root Diameter 2.9 cm LA Systolic Diameter LX 3.2 cm 3.0 - 4.0 / 2.7 - 3.8 cm LA Volume 26.0 cm 18 - 58 / 22 - 52 cm Ascending Aorta Diameter 3.2 cm DOPPLER AV Peak Velocity 151.0 cm/s AV Peak Gradient 9.1 mmHg AV Mean Velocity 105.0 cm/s AV Mean Gradient 5.0 mmHg AV Velocity Time Integral 30.1 cm LVOT Peak Velocity 97.0 cm/s LVOT Peak Gradient 3.8 mmHg LVOT Mean Velocity 74.3 cm/s LVOT Mean Gradient 2.0 mmHg LVOT Velocity Time Integral 16.9 cm LVOT Stroke Volume 58.5 cm AV Area Cont Eq vti 1.9 cm AV Area Cont Eq pk 2.2 cm MV Peak Velocity 131.0 cm/s MV Peak Gradient 6.9 mmHg MV Mean Velocity 87.5 cm/s MV Mean Gradient 4.0 mmHg Mitral E Point Velocity 89.3 cm/s Mitral A Point Velocity 100.0 cm/s Mitral E to A Ratio 0.9 MV PHT Velocity 121.0 cm/s MV Deceleration [place] 435.0 cm/s MV Pressure Half Time 83.4 ms MV Area PHT 2.6 cm MV Deceleration Time 193.0 ms TR Peak Velocity 258.0 cm/s TR Peak Gradient 26.6 mmHg Right Atrial Pressure 5.0 mmHg Pulmonary Artery Systolic Pressu 31.6 mmHg Right Ventricular Systolic Press 31.6 mmHg PV Peak Velocity 84.7 cm/s PV Peak Gradient 2.9 mmHg PV Mean Velocity 57.6 cm/s PV Mean Gradient 1.0 mmHg PV Velocity Time Integral 15.7 cm LV E' Lateral Velocity 7.9 cm/s Mitral E to LV E' Lateral Ratio 11.2 LV E' Septal Velocity 12.1 cm/s Mitral E to LV E' Septal Ratio 7.4
[2017-03-14 23:58] VITALS: BP 98/52
[2017-03-15 08:02] LABS: ABSOLUTE BASOPHIL COUNT 0 /CUMM (0.0-0.2); ABSOLUTE EOSINOPHIL COUNT 0.1 /CUMM (0.0-0.7); ABSOLUTE GRANULOCYTE CT 10.4 /CUMM (1.4-6.5); ABSOLUTE LYMPH COUNT 0.7 /CUMM (1.2-3.4); ABSOLUTE MONOCYTE COUNT 0.5 /CUMM (0.10-0.60); BASOPHIL % 0 % (0.0-2.0); EOSINOPHIL % 0.9 % (0-5); GRANULOCYTE % 89.3 % (42.2-75.2); HEMATOCRIT 38.2 % (37-47); MEAN CORPUSCULAR HGB 33.4 PG (27.0-31.0); MEAN CORPUSCULAR HGB CONC 33.1 G/DL (33.0-37.0); MEAN CORPUSCULAR VOLUME 100.9 FL (81.0-99.0); MEAN PLATELET VOLUME 9.2 FL (7.4-10.4); PLATELET COUNT 140 /CUMM (130-400); RBC DISTRIBUTION WIDTH 13.8 % (11.5-14.5); RED BLOOD CELL CT 3.79 /CUMM (4.20-5.40)
[2017-03-15 08:07] VITALS: BP 138/80
[2017-03-15 08:33] LABS: WHITE BLOOD CELL COUNT 11.7 /CUMM (4.8-10.8)
[2017-03-15] MEDS ORDERED: AVELOX400 M1 PO (08:42)
--- NOTE | 2017-03-15 08:58 | Event Note ---
Event Note Event Note: Nurse called in the morning to evaluate the patient as she wanted to leave AMA. Patient was evaluated and situation was discussed in detail. Patient was frustated that she has been seen by multiple physicians during her admission and overall clear plan of diagnosis was not conveyed to her. Multiple assurances were given to the patient and plan of care was again explained in detail. Supervising attending was informed. Patient was not oriented to the day and appeared slightly confused. She denied all the help and services offered by the supervising attending. Patient's was also reached and the whole situation was explained. All the risks associated with leaving his medical advice were explained in detail. Patient understood all the risks and despite all these measures patient decided to leave at least medical advice. She was given by mouth antibiotics to complete treatment for pneumonia and was told to follow-up with her primary care physician as early as possible today.
--- NOTE | 2017-03-15 13:44 | PN- Att Addend ---
Attending Addendum Attending Brief Note I sas notified by house staff and nursing staff this morning the patient was adamant on leaving the hospital AGAINST MEDICAL ADVICE. She stated that she was not feeling better and not happy with her care here. She expressed frustration about seeing multiple providers. She had seen a piecer up (Night Hospitalist), a resident physician who ended his rotation yesterday and another resident who began dissertation today as well as myself her attending physician. I did explain the rules of the night hospitalist, resident's and myoneural to the patient yesterday when I first evaluated her. I did explain that I will be following up with her again today. I did explain yesterday the diagnosis of pneumonia and the treatment plan with intravenous antibiotics. Would also talked about the possibility of transitioning her to oral antibiotics today as she was of the impression that no stools which she had yesterday was secondary to diarrhea. Yesterday was also talked about her abnormal EKG findings. I did reassure her yesterday since she had negative cardiac enzymes and no cardiac symptoms. Patient reports today that part of her frustration and is unaware of her diagnosis and that she is not getting better. I did going over in detail with her the diagnosis of pneumonia the treatment plan with IV antibiotics. I did discuss the echocardiogram findings showing no acute pathology. I did explain an echocardiogram was done as per further workup for her abnormal EKG. Despite reassurances and detailed discussions with her she remained adamant on leaving the hospital. She was alert and oriented 3. She has at all questions appropriately. She clearly explained the reason for leaving the hospital was because she was still feeling ill and felt were not explaining what was going on to her. I did reach out to her and spoke with him extensively on the phone explaining the diagnosis and treatment plan. He did reach out to her on the phone in my presence and try to convince him to stay but she remained adamant on leaving. Blood pressure wasstable. She has a low-grade fever of 100.0 this morning. She has a MAXIMUM TEMPERATURE of 102.5 yesterday evening. She was mildly tachycardic this morning. She did not require oxygen supplementation saturating 95% on room air. She did not allow me to examine her but did not appear to be in any respiratory distress. She was talking in complete sentences. She was ambulating freely around the room. She left the hospital AGAINST MEDICAL ADVICE. We did provide her with prescriptions for Levaquin to complete 10 days of therapy. I did advise her to follow-up with her primary care provider today. She stated that she would. Following this I did reach out to her primary care provider Dr. Kierra Nagel. I updated him about the above events and notified him that I had advised her to follow-up with him. Later on her labs returned showing new leukocytosis and hypokalemia with potassium of 3.2. Following this I reached out to the patient's again. He reports that his at work has been in constant communication with his reports that she is doing okay. He states that she has reached out to the primary care provider's office and is making an appointment for today. He states that he will be driving her to the appointment today. I did reach out to Dr. Kierra Nagel again and notified him of the laboratory findings. I did also notify him that the patient would be coming over to his office today. He did acknowledge that she had called the office. He'll be following up with her. Further treatment will be dependent on his evaluation of her.
--- NOTE | 2017-03-16 14:18 | Discharge Summary ---
Visit Information Visit Dates Admission Date: 03/13/17 Discharge Date: 03/15/17 Hospital Course Course Attending Physician: KRISTAL BOOTHE M.D Primary Care Physician: JORY BEARD,MUMTAZ Lopez Consulting Request: Consulting Specialty: Cardiology Hospital Course: 67-year-old female with history of depression, clinical Sjogren's (negative markers), was sent in by [id number] for evaluation of shortness of breath, cough, fever, and chills, to evaluate for pneumonia. She was uptodate with flu and pneumonia vaccine. Of note, patient denied having any cardiac problems. She did report exertional dyspnea for the past 1 year, at baseline she reported to be active and works out 3-4 times per week. She also reported having difficulty swallowing food, as she tends to choke and has to facililitate swallowing with water. She denies odynophagia or aspiration. In emergency department, O2 sats were 86% on RA, on ambulation sats dropped to 79% later on improved 97% on 2.5L. Tmax 100, tachycardic to 100-110's, BP 126/63 - 98/58. On examination AAO, dry mucous membranes, Chest right sided basilar rales. Labs: WBC 8.8, macrocytosis, trop neg, lactic acid 2.2 which increased to 2.6. CXR: right lower lobe consolidation concerning for a developing pneumonia. EKG: Sinus tachycardia, Qtc 402, minimal ST depression, TWI V3-6, II, III, aVF ( compared to EKG 2007). Patient was admitted on telemetry for the management of following problems Acute hypoxemic respiratory failure/lactic acidosis Patient had acute hypoxemic respiratory failure likely secondary to community- acquired pneumonia. She was started on IV ceftriaxone and azithromycin. Blood and respiratory cultures were obtained influenza A and B was negative. Because chest x-ray showed Right lower lobe swallow evaluation was done to rule out aspiration. Patient received TR nebs and pancultured. No growth from blood cultures. Since patient did not complete IV antibiotic therapy during hospital admission she was given 10 additional days of Avelox and was told to follow-up with primary care doctor as soon as possible. Patient also received IV hydration and lactic acidosis was resolved during the hospital stay. Prolonged exertional dyspnea and new EKG changes She was admitted on telemetry unit and serial troponins and EKG were done to rule out an acute coronary disease. Echocardiogram was done which showed normal ejection fraction of greater than 65% without valvular abnormalities. Thyroid functions were obtained which were within the normal limits. Cardio consult was also called but patient left before cardiac evaluation. Left AGAINST MEDICAL ADVICE Nurse called in the morning to evaluate the patient as she wanted to leave AMA. Patient was evaluated and situation was discussed in detail. Patient was frustated that she has been seen by multiple physicians during her admission and overall clear plan of diagnosis was not conveyed to her. Multiple assurances were given to the patient and plan of care was again explained in detail. Supervising attending was informed. Patient was not oriented to the day and appeared slightly confused. She denied all the help and services offered by the supervising attending. Patient's was also reached and the whole situation was explained. All the risks associated with increased white count, electrolyte abnormalities including low potassium were conveyed in detail. Patient understood all the risks and despite all these measures and services offered patient decided to leave at least medical advice. She was given by mouth antibiotics to complete treatment for pneumonia and was told to follow-up with her primary care physician as early as possible today. Patient did make an appointment with her outpatient PCP, which was confirmed by calling her PCP. Patient was DNR/DNI Patient was on regular diet Patient was on subcutaneous heparin DVT prophylaxis Patient was in pain management Allergies: Coded Allergies: egg (Intermediate, NAUSEA, VOMITING, DIARRHEA 03/13/17) Penicillins (HIVES 08/08/16) Disposition Summary Disposition Principal Diagnosis: Community-acquired pneumonia Acute hypoxemic respiratory failure Nonspecific EKG changes Additional Diagnosis: History of depression History of anxiety History of clinical Sjogren's (negative markers) Discharge Disposition: left against medical adv Discharge Instructions General Discharge Information Code Status: Do Not Resucitate/Intubat Patient's Diet: Regular diet Patient's Activity: As tolerated Follow-Up Instructions/Appts: Follow-up with primary care doctor as soon as possible Follow-up with wash crew person after discharge Medications at Discharge Discharge Medications: Continue taking these medications: Duloxetine HCl (Duloxetine HCl) 60 MG CAPSULE.DR 2 Capsule ORAL DAILY Qty = 180 Comments: Last Taken: 03/15/17 Time: 9 AM Alprazolam (Alprazolam) 2 MG TABLET 1 Tablet ORAL TWICE DAILY as needed for ANXIETY Qty = 180 Comments: Last Taken: 03/14/17 Time: 10 PM Ipratropium [place] (Ipratropium [place]) 42 MCG (0.06 %) SPRAY 1 [place] Both sides of nose 4XDAILY Qty = 15 Comments: NOT GIVEN IN HOSPITAL Cyclosporine (Restasis) 0.05 % DROPERETTE 1 Drop In the eye TWICE DAILY Qty = 60 Comments: Last Taken: 03/15/17 Time: 9 AM Conde-3 Fatty Acids (Conde-3) 1,000 MG CAPSULE 1 Capsule ORAL TWICE DAILY Days = 90 Comments: Last Taken: 03/15/17 Time: 9 AM Biotin (Biotin) 800 MCG TABLET 2 Capsule ORAL DAILY Days = 90 Comments: NOT GIVEN IN HOSPITAL Lactobacillus Acidophilus (Probiotic) 10 BILLION CELL CAPSULE 2 Capsule ORAL DAILY Days = 60 Comments: Last Taken: 03/15/17 Time: 9 AM Start taking the following new medications: Moxifloxacin HCl (Avelox) 400 MG TABLET 1 Tablet ORAL DAILY Qty = 10 No Refills Comments: NOT GIVEN IN HOSPITAL Copies To: KRISTAL BOOTHE M.D
== END 2017-03-15 09:30 | disposition left against medical advice (07) | DRG 193 ==
LOC: ERH 16:09 → ERHI 19:11 → 1NO 19:11 → ENRESERV 21:10 → ENTRNSPT 22:37 → 1NO 22:47 → CMPTRNSPT 03-14 07:01 → ENPENDDIS 03-15 08:54 → 1NO 03-15 09:30
PROVIDERS: Emergency Medicine; Internal Medicine Infectious Disease; Student in an Organized Health Care Education/Training Program; ADMIT Student in an Organized Health Care Education/Training Program
DX: J18.9 Pneumonia, unspecified organism (principal); J96.01 Acute respiratory failure with hypoxia; M35.00 Sjogren syndrome, unspecified; Z87.891 Personal history of nicotine dependence; R94.31 Abnormal electrocardiogram [ECG] [EKG]; Z82.49 Family history of ischemic heart disease and other diseases of the circulatory system; E87.6 Hypokalemia
CPT/HCPCS: 1NSP; 36415; 82436; 87040; 87070; 87449; 87450; 87804; 87804-59; 93005; 93010; 93306; 96360; 96361; 99291; J0456; J0696; J1644; J7040